=== PATIENT | male | born 1960 | race Caucasian/White ===

== ENCOUNTER 2019-07-27 09:40 | Emergency (ER) | payer OTHER, BC, SELFPAY ==
[2019-07-27 09:41] VITALS: BP 192/97; PULSE 83; RESP 16; TEMP 36.6; O2SAT 100; BMI 21.2
--- NOTE | 2019-07-27 10:15 | RAD_ITS ---
STUDY: X-RAY - RIGHT HAND, ATTENTION RIGHT THUMB. REASON FOR EXAM: Male, 59 years old. Smashed thumb in between pallets, pain TECHNIQUE: 3 view(s) of the finger were obtained. COMPARISON: None. FINDINGS: Normal metacarpal head. Normal metacarpophalangeal joint. Normal proximal phalanx. Avulsion fracture at the base of the distal phalanx of the thumb. Normal distal phalanx. Normal distal interphalangeal joint. Soft tissue swelling. RAD/Finger(s) Min 2 Views IMPRESSION: Avulsion fracture along the dorsal aspect of the base of the distal pharynx of the thumb. Soft tissue swelling. Electronically Signed: Jose Horta, at 10:43 EDT , Service support ,
[2019-07-27] MEDS: Ibuprofen 600 MG Tablet PO (10:22)
--- NOTE | 2019-07-27 10:53 | ED.VISSUMM ---
- ER Visit Summary Date of Service: 07/27/19 Chief Complaint: Crush injury right thumb History of Present Illness: The patient is a 59 M who reports that he got his right hand caught in a pallet [employer]adora at work. He is right-hand dominant. He is a sharp pain is 9-10 with movement 3-10 at rest. Denies any paresthesias distally. He denies any other injuries. Physical Examination: Vitals: Stable. Afebrile. General: Well-nourished and well-developed. Head: Normocephalic atraumatic. Neck: Supple, no lymphadenopathy. No JVD. Nontender. Cardiovascular: Regular rate and rhythm. No murmurs. Respiratory: No respiratory distress. Clear to auscultation bilaterally. Abdominal: Soft, nontender, nondistended, normal bowel sounds. No guarding, rebound, or peritoneal signs. Back: Nontender. Extremities: Soft tissue swelling and contusion to the right thumb. Is moderately tender to palpation. There is no break in the skin. He is neuro vas intact distal this. Skin: Normal color, no rash. Neurologic: Alert and oriented ?3. Cranial nerves II through XII are intact. Normal strength and sensation. Psych: Normal affect. Test Results: Clinical Impression(s) from Imaging Studies Finger X-Ray 07/27/19 10:15 IMPRESSION: Avulsion fracture along the dorsal aspect of the base of the distal pharynx of the thumb. Soft tissue swelling. Electronically Signed: Jose Horta, at 10:43 EDT , Service support , Emergency Department Course and Treatment: Patient was treated with ibuprofen. He is placed in aluminum foam splint. Treatment Plan: The patient was discussed with the [facility]. Dr. Winslow is on-call for hand. Patient is instructed to follow-up with him in the next 3 to 5 days for another exam. He does understand that this may end up requiring surgery. Given a prescription for [place]. Return to the emergency department for any worsening symptoms. Disposition: To home in improved and stable condition. Impression: 1 1. Right thumb distal phalanx fracture. This note was generated with [employer] software. It may contain incorrect words, spelling, and punctuation that were not noted in review of the chart prior to signing ED Disposition - Plan for ED Patient: Disposition: Home or Assisted Living Instructions: ED FINGER FRACTURE Closed Prescriptions: Hydrocodone Bitart/Apap 5-325 [[place] 5MG-325MG] 1 tab PO Q4H PRN PRN 2 Days #10 tab PRN Reason: Pain Prescription Printed Referrals: Geremias Winslow MD [NON-STAFF] - 3-5 Days
[2019-07-27 11:23] VITALS: BP 179/73; PULSE 79; RESP 16; O2SAT 100
== END 2019-07-27 11:30 | disposition home or self-care (01) ==
LOC: ED 11:36
PROVIDERS: Emergency Provider Emergency Medicine
DX: S62.521A Displaced fracture of distal phalanx of right thumb, initial encounter for closed fracture (principal); Z72.0 Tobacco use; W31.89XA Contact with other specified machinery, initial encounter; Y93.89 Activity, other specified; Y92.89 Other specified places as the place of occurrence of the external cause; Y99.0 Civilian activity done for income or pay
CPT/HCPCS: 73140; 99283